=== PATIENT | male | born 2000 | race Caucasian/White ===

== ENCOUNTER 2020-06-04 23:36 | Emergency (ER) | payer OTHER ==
[~2020-06-04] VITALS: Ht 175.3 cm; Wt 80.3 kg
[2020-06-04 23:45] VITALS: Ht 175.3 cm; Wt 80.3 kg
[2020-06-05 01:28] VITALS: BP 136/75
== END 2020-06-05 01:28 | disposition home or self-care (01) ==
LOC: ED 23:36
DX: S63.92XA Sprain of unspecified part of left wrist and hand, initial encounter (principal); X58.XXXA Exposure to other specified factors, initial encounter; Y93.89 Activity, other specified; Y92.89 Other specified places as the place of occurrence of the external cause; Y99.8 Other external cause status
CPT/HCPCS: A4570; Q0092

== ENCOUNTER 2020-09-09 17:33 | Emergency (ER) | payer OTHER ==
[~2020-09-09] VITALS: Ht 172.7 cm; Wt 83.5 kg
[2020-09-09 17:42] VITALS: BP 118/72; Ht 172.7 cm; Wt 83.5 kg
== END 2020-09-09 20:17 | disposition home or self-care (01) ==
LOC: ED 17:33
DX: S06.0X0A Concussion without loss of consciousness, initial encounter (principal); W20.8XXA Other cause of strike by thrown, projected or falling object, initial encounter; Y93.89 Activity, other specified; Y92.89 Other specified places as the place of occurrence of the external cause; Y99.8 Other external cause status